=== PATIENT | female | born 1970 | race Caucasian/White ===

== ENCOUNTER 2020-05-10 07:46 | Emergency (ER) | payer OTHER ==
[~2020-05-10] VITALS: Ht 177.8 cm; Wt 100.0 kg
[2020-05-10] MEDS ORDERED: PRAVASTATIN20 MG PO (08:01)
[2020-05-10] MEDS ORDERED: LEXAPRO10 MG PO (08:02)
[2020-05-10] MEDS ORDERED: FISH OIL1000 MG PO (08:02)
[2020-05-10] MEDS ORDERED: VITA D-1000 PO (08:02)
[2020-05-10] MEDS ORDERED: HYDROCO/APAP1 TA9 PO (09:19)
[2020-05-10 10:08] VITALS: BP 140/89
== END 2020-05-10 10:08 | disposition home or self-care (01) | DRG 563 ==
LOC: ED 07:46
PROC: 2W3TX1Z Immobilization of Left Foot using Splint (ICD-10-PCS; principal; 2020-05-10)
DX: S92.355A Nondisplaced fracture of fifth metatarsal bone, left foot, initial encounter for closed fracture (principal); W10.9XXA Fall (on) (from) unspecified stairs and steps, initial encounter; Y92.099 Unspecified place in other non-institutional residence as the place of occurrence of the external cause